=== PATIENT | female | born 1960 | race African-American/Black ===

== ENCOUNTER 2017-11-27 16:05 | Inpatient (IN) | payer MEDICAID ==
[~2017-11-27] VITALS: Ht 165.1 cm; Wt 90.7 kg
[~2017-11-27 16:05] MED LIST: HYDR12.56; OME20GT
[2017-11-27] MEDS ORDERED: SODIUM CHLORIDE 0.9% 500 ML IVB ONE (16:25)
[2017-11-27] MEDS ORDERED: MORPHINE SULFATE 4 MG/ML SYR/VIAL IV ONE (16:30)
[2017-11-27] MEDS ORDERED: METOCLOPRAMIDE HCL 5MG/ml INJ 2ml VIAL IV ONE (16:30)
[2017-11-27 18:13] LABS: Basophils # (auto) 0 uL; Basophils % (auto) 0.4 % (0.0-2.0); Eosinophils # (auto) 0.1 uL; Eosinophils % (auto) 1.1 % (0.0-7.0); Hematocrit 38.9 % (36.0-46.0); Hemoglobin 12.9 g/dL (12.2-16.2); Lymphocytes # (auto) 1.2 uL; Lymphocytes % (auto) 20.1 % (10.0-50.0); Mean Corpuscular Hemoglobin 31.4 pg (28.0-32.0); Mean Corpuscular Volume 94.9 fL (80.0-100.0); Monocytes # (auto) 0.2 uL; Monocytes % (auto) 3.9 % (0.0-12.0); Neutrophils # (auto) 4.5 uL; Neutrophils % (auto) 74.5 % (37.0-80.0); Nucleated Red Blood Cells % 0.2 %; Platelet Count (auto) 292 10^3/uL (140-450); Red Cell Distribution Width 12.7 % (11.8-14.3)
[2017-11-27 18:16] LABS: Magnesium 2.4 mg/dL (1.6-2.6)
[2017-11-27 18:20] LABS: Albumin 3.5 g/dL (3.4-5.0); Anion Gap 8 (5-15); Blood Urea Nitrogen 8 mg/dL (7-18); Calcium 8.6 mg/dL (8.5-10.1); Carbon Dioxide 26 mmol/L (21-32); Chloride 105 mmol/L (98-107); Glucose 130 mg/dL (74-106); Potassium 3.9 mmol/L (3.5-5.1); Sodium 139 mmol/L (136-145)
[2017-11-27 18:22] LABS: Alanine Aminotransferase 17 U/L (13-56); Aspartate Aminotransferase 15 U/L (15-37); BUN/Creatinine Ratio 10.8; GFR African American 105 mL/min; GFR Non-African American 87 mL/min
[2017-11-27 18:28] LABS: Alkaline Phosphatase 68 U/L (45-117); Bilirubin, Total 0.4 mg/dL (0.2-1.0); Total Protein 7.6 g/dL (6.4-8.2)
[2017-11-27] MEDS ORDERED: SODIUM CHLORIDE 0.9% 1,000 ML IV SCH ×2 (19:20)
[2017-11-27] MEDS ORDERED: cefTRIAXone 1GM/10ml IVPUSH 10 ML IV ONE (19:30)
[2017-11-27] MEDS ORDERED: TEMAZEPAM 15 MG CAP PO PRN (19:30)
[2017-11-27] MEDS ORDERED: LORazepam 0.5 MG TAB PO PRN (19:30)
[2017-11-27] MEDS ORDERED: NITROGLYCERIN 0.4 MG SL TAB SL PRN (19:30)
[2017-11-27] MEDS ORDERED: PROMETHAZINE HCL 25 MG/ML 1ML IV PRN (19:30)
[2017-11-27] MEDS ORDERED: HYDROcodone-ACET 5/325MG TAB PO PRN (19:30)
[2017-11-27] MEDS ORDERED: DEXTROSE (50%) 50ML SYRG IV PRN (19:30)
[2017-11-27] MEDS ORDERED: MORPHINE SULFATE 8mg/ml INJ SDV IV PRN (19:30)
[2017-11-27] MEDS ORDERED: LACTULOSE 20Gm/30ML SOLN PO PRN (19:30)
[2017-11-27] MEDS ORDERED: MORPHINE SULFATE 4 MG/ML SYR/VIAL IV PRN (19:30)
[2017-11-27] MEDS ORDERED: ACETAMINOPHEN 500 MG TAB PO PRN (19:30)
[2017-11-27] MEDS ORDERED: ENOXAPARIN SOD 40 MG/0.4 ML SYRINGE SC SCH (19:36)
[2017-11-27] MEDS ORDERED: PANTOPRAZOLE 40 MG TAB PO ONE (19:45)
[2017-11-27 20:31] LABS: CRP High Sensitivity 0.25 mg/dL (< 0.3)
[2017-11-27] MEDS ORDERED: METOPROLOL TARTRATE 25 MG TAB PO SCH (22:00)
[2017-11-27] MEDS ORDERED: ATORVASTATIN 20 MG TAB PO SCH (22:00)
[2017-11-27 22:57] VITALS: BP 156/95
[2017-11-27 23:20] LABS: Urine Amorphous Crystal MOD /hpf (None Seen); Urine Bacteria NONE SEEN /hpf (None Seen); Urine Blood Negative /uL (Negative); Urine Budding Yeast OCCASIONAL /hpf (None Seen); Urine Mucus FEW (None Seen); Urine Specific Gravity 1.024 (1.001-1.035); Urine WBC 6 /hpf (0 - 5)
[2017-11-27 23:31] LABS: Alcohol, Urine < 3.0 mg/dL (0-5); Amphetamine Screen, Urine NEGATIVE (NEGATIVE); Barbiturate Scree,Urine NEGATIVE (NEGATIVE); Benzodiazephine Screen, Urine NEGATIVE (NEGATIVE); Cannabinoid Screen, Urine NEGATIVE (NEGATIVE); Cocaine Screen, Urine NEGATIVE (NEGATIVE); Opiate Scree,Urine POSITIVE (NEGATIVE); Phencyclidine Screen, Urine NEGATIVE (NEGATIVE)
[2017-11-28] MEDS ORDERED: ACCU-CHEK COMFORT CURVE STRIP VI SCH
[2017-11-28] MEDS ORDERED: cefTRIAXone 1GM/10ml IVPUSH 10 ML IV SCH (09:00)
[2017-11-28] MEDS ORDERED: PANTOPRAZOLE 40 MG TAB PO SCH (10:00)
[2017-11-28] MEDS ORDERED: NITROGLYCERIN 0.2MG/HR TOPICAL PATCH TD SCH (10:00)
[2017-11-28] MEDS ORDERED: metroNIDAZOLE 500MG/100ML 100 ML IV SCH (20:00)
== END 2017-11-27 22:55 | disposition short-term general hospital (02) | DRG 203 ==
LOC: EDBD 16:05 → EDUNIT# 16:05 → ER 16:08 → TELE 16:09
PROVIDERS: ADMIT Internal Medicine; ATTEND Internal Medicine
DX: R07.9 Chest pain, unspecified (principal); I10 Essential (primary) hypertension; E66.9 Obesity, unspecified; K21.9 Gastro-esophageal reflux disease without esophagitis; R73.9 Hyperglycemia, unspecified; R10.9 Unspecified abdominal pain; Z90.49 Acquired absence of other specified parts of digestive tract; Z87.891 Personal history of nicotine dependence; Z98.51 Tubal ligation status; Z68.33 Body mass index [BMI] 33.0-33.9, adult
CPT/HCPCS: 36415; 71046; 76705; 80053; 80307; 81001; 82150; 82550; 83036; 83690; 83735; 84443; 84484; 85025; 85379; 85652; 86141; 93005; 94761; 96361; 96374; 96375

== ENCOUNTER 2019-04-26 07:50 | Emergency (ER) | payer MEDICAID ==
[~2019-04-26] VITALS: Ht 170.2 cm; Wt 90.7 kg
[2019-04-26 08:44] LABS: Basophils # (auto) 0 uL; Basophils % (auto) 0.4 % (0.0-2.0); Eosinophils # (auto) 0.3 uL; Eosinophils % (auto) 5.3 % (0.0-7.0); Hematocrit 40.4 % (36.0-46.0); Hemoglobin 13.1 g/dL (12.2-16.2); Lymphocytes # (auto) 1.5 uL; Lymphocytes % (auto) 24.5 % (10.0-50.0); Mean Corpuscular Hemoglobin 30.6 pg (28.0-32.0); Mean Corpuscular Hgb Conc. 32.5 g/dL (32.0-36.0); Mean Corpuscular Volume 94.1 fL (80.0-100.0); Monocytes # (auto) 0.3 uL; Monocytes % (auto) 4.7 % (0.0-12.0); Neutrophils # (auto) 4.1 uL; Neutrophils % (auto) 65.1 % (37.0-80.0); Nucleated Red Blood Cells % 0.1 %; Platelet Count (auto) 285 10^3/uL (140-450); Red Blood Cells 4.29 10^6/uL (4.0-5.20); Red Cell Distribution Width 12.9 % (11.8-14.3); White Blood Cell 6.3 10^3/uL (4.4-10.8)
[2019-04-26 09:00] LABS: Albumin 3.4 g/dL (3.4-5.0); BUN/Creatinine Ratio 11.7; Calcium 8.8 mg/dL (8.5-10.1); Potassium 3.8 mmol/L (3.5-5.1)
[2019-04-26 09:12] LABS: Bilirubin, Total 0.3 mg/dL (0.2-1.0); Total Protein 7.3 g/dL (6.4-8.2)
[2019-04-26] MEDS ORDERED: KETOROLAC TROMETH 60MG/2ML VIAL IM ONE (09:30)
[2019-04-26] MEDS ORDERED: ONDANSETRON ODT 4 MG TAB PO ONE (09:30)
[2019-04-26 09:57] VITALS: BP 153/61
== END 2019-04-26 10:29 | disposition home or self-care (01) ==
LOC: ER 07:54
DX: K80.80 Other cholelithiasis without obstruction (principal); N20.0 Calculus of kidney; K21.9 Gastro-esophageal reflux disease without esophagitis; I10 Essential (primary) hypertension; F17.210 Nicotine dependence, cigarettes, uncomplicated; Z90.49 Acquired absence of other specified parts of digestive tract; Z98.51 Tubal ligation status
CPT/HCPCS: 36415; 74176; 80053; 83690; 83735; 85025; 93005; 96372; 99284; J1885; Q0162